=== PATIENT | male | born 1930 | race Two or more races ===

== ENCOUNTER 2017-04-25 13:48 | Outpatient (CLI) | payer OTHER ==
[~2017-04-25 13:48] MED LIST: CIPRO500 MG PO; PROTONIX40 MG PO
== END 2017-04-25 13:55 | disposition home or self-care (01) ==
LOC: SONOGRAMA 13:48
DX: R31.9 Hematuria, unspecified (principal)

== ENCOUNTER 2017-12-16 09:32 | Outpatient (CLI) | payer OTHER | END 2017-12-16 09:34 | disposition home or self-care (01) | LOC: RAD 09:32 | DX: S57.01XA Crushing injury of right elbow, initial encounter (principal); S67.21XA Crushing injury of right hand, initial encounter; S40.911D Unspecified superficial injury of right shoulder, subsequent encounter ==

== ENCOUNTER 2017-12-21 22:59 | Inpatient (IN) | payer OTHER ==
[~2017-12-21] VITALS: Ht 167.6 cm; Wt 54.0 kg
[2017-12-21] MEDS ORDERED: SYNTHROID50 MCG (23:10)
[2017-12-21] MEDS ORDERED: ZANTAC25 MG/1 ML (23:11)
== END 2017-12-28 10:55 | disposition expired ==
LOC: ER 22:59 → ICU-2 12-22 11:15 → ICU 12-23 10:52
PROC: 02HV33Z Insertion of Infusion Device into Superior Vena Cava, Percutaneous Approach (ICD-10-PCS; principal; 2017-12-22)
PROC: B246ZZZ Ultrasonography of Right and Left Heart (ICD-10-PCS; 2017-12-22)
PROC: 30233N1 Transfusion of Nonautologous Red Blood Cells into Peripheral Vein, Percutaneous Approach (ICD-10-PCS; 2017-12-22)
PROC: 5A1D70Z Performance of Urinary Filtration, Intermittent, Less than 6 Hours Per Day (ICD-10-PCS; 2017-12-22)
PROC: 4A033R1 Measurement of Arterial Saturation, Peripheral, Percutaneous Approach (ICD-10-PCS; 2017-12-22)
PROC: 3E0F7GC Introduction of Other Therapeutic Substance into Respiratory Tract, Via Natural or Artificial Opening (ICD-10-PCS; 2017-12-22)
PROC: BT43ZZZ Ultrasonography of Bilateral Kidneys (ICD-10-PCS; 2017-12-23)
DX: I21.4 Non-ST elevation (NSTEMI) myocardial infarction (principal); I50.21 Acute systolic (congestive) heart failure; N17.8 Other acute kidney failure; I13.0 Hypertensive heart and chronic kidney disease with heart failure and stage 1 through stage 4 chronic kidney disease, or unspecified chronic kidney disease; J90 Pleural effusion, not elsewhere classified; I48.0 Paroxysmal atrial fibrillation; D64.89 Other specified anemias; N18.1 Chronic kidney disease, stage 1; I46.8 Cardiac arrest due to other underlying condition; K57.30 Diverticulosis of large intestine without perforation or abscess without bleeding; E11.9 Type 2 diabetes mellitus without complications; E78.00 Pure hypercholesterolemia, unspecified; K21.9 Gastro-esophageal reflux disease without esophagitis; J45.998 Other asthma; R60.1 Generalized edema; Z88.6 Allergy status to analgesic agent; Z99.2 Dependence on renal dialysis; I24.9 Acute ischemic heart disease, unspecified